=== PATIENT | female | born 1980 | race Caucasian/White ===

== ENCOUNTER 2024-02-24 10:47 | Emergency (ER) | payer SELFPAY ==
[2024-02-24 10:48] VITALS: BP 148/82
[2024-02-24 11:10] LABS: % Basophils 1.4 % (0-2); % Eosinophils 11.1 % (0-6); % Immature Granulocytes 0.2 % (0-0.5); % Lymphocytes 52.2 % (20.5-51.1); % Monocytes 8.8 % (1.7-9.3); % Neutrophils 26.3 % (42.2-75.2); Absolute Basophils 0.1 10^3/uL (0-0.2); Absolute Eosinophils 0.7 10^3/uL (0-0.7); Absolute Lymphocytes 3.3 10^3/uL (1.2-3.4); Absolute Monocytes 0.6 10^3/uL (0.1-0.6); Absolute Neutrophils 1.6 10^3/uL (1.4-6.5); Hematocrit 39.5 % (37.0-47.0); Hemoglobin 14.4 g/dL (12.0-16.0); Mean Corp Hgb Conc. 36.5 g/dL (33.0-37.0); Mean Corpuscular Hgb 29.6 pg (27.0-31.0); Mean Corpuscular Volume 81.3 fL (81.0-99.0); Mean Platelet Volume 8.6 fL (7.4-10.4); Nucleated Red Blood Cells % 0 %; Platelet Count 275 10^3/uL (130-400); Red Blood Cell Count 4.86 10^6/uL (4.20-5.40); Red Cell Dist. Width 13.1 % (11.5-14.5); White Blood Cell Count 6.2 10^3/uL (4.8-10.8)
[2024-02-24 11:22] LABS: ALT (SGPT) 20 U/L (0-35); AST (SGOT) 28 U/L (14-36); Albumin 4.5 g/dl (3.5-5.0); Alkaline Phosphatase 54 U/L (38-126); Blood Urea Nitrogen 11 mg/dl (7-17); Calcium 9.6 mg/dl (8.4-10.2); Carbon Dioxide 27 mmol/L (22-30); Chloride 107 mmol/L (98-107); Glucose 83 mg/dl (70-99); Sodium 138 mmol/L (135-145); Total Bilirubin 0.7 mg/dl (0.2-1.3); Total Protein 7.2 g/dl (6.3-8.2); eGFR > 60.00
[2024-02-24 11:26] LABS: COVID-19 Antigen Negative (Negative)
[2024-02-24 11:33] LABS: Troponin I < 0.012 ng/ml
[2024-02-24] MEDS: DECADRON 10 MG PO (11:36)
[2024-02-24] MEDS: DUONEB 3 ML INH ×2 (11:37→13:02)
--- NOTE | 2024-02-24 12:46 | ED.GENMED ---
History of Present Illness
General
Chief Complaint: Breathing Problem
Source: patient
Exam Limitations: none
Time Seen by Provider: 02/24/24 11:20
Nursing documentation reviewed up to this point in time: agreed with
Travel History
Have you had any contact with someone who has COVID-19?: No
Do you have any symptoms of coronavirus? Fever > 100 degrees, chills, cough, shortness of breath, sore throat, loss of taste or smell, muscle aches, or headache?: No
History of Present Illness
History of Present Illness:
43-year-old female with past medical history of asthma presenting to the emergency department today with concerns of 1 week of worsening wheezing shortness of breath despite using inhaler nebulizer at home has had some degree of symptoms over the
past 2 months. Denies chest pain fevers nausea vomiting.
Past History
Past History
ED Past Medical History: Asthma and Other (Bronchitis)
ED Past Surgical History: Gynecological (Tubal ligation)
Social History
Tobacco: Vaping
Alcohol: None
Drug: None
Personal:
Living: with family
Review of Systems
Review of Systems
Allergies reviewed?: Yes
All Other Systems: ROS reviewed and negative except as documented in HPI and ROS
Phy Exam
Physical Exam
Physical Exam:
GENERAL: Alert , in no apparent distress
EYE: pupils equal and reactive
NECK: Supple, no significant adenopathy.
ENT: o/p clr, mmm.
CARDIAC: Regular rate and rhythm .
LUNGS: Diffuse inspiratory and expiratory wheezing.
ABDOMEN: Soft, without focal tenderness, no r/g, no cvat
NEUROLOGICAL: Alert and oriented, no focal neuro deficits
SKIN: Warm and dry, skin intact.
MUSCULOSKELETAL: No edema, well perfused.
PSYCH: Normal and appropriate interaction.
Scores
Heart Failure Risk
Heart Failure Risk Score: Not Applicable
Course
Orders/Labs/Results
Orders:
Orders
02/24/24 10:50
Electrocardiogram (*1) Urgent
Reason for Study: Shortness of Breath
02/24/24 10:51
EKG- Treatment ONCE
02/24/24 10:59
COVID-19 Antigen Urgent
Source: Nasal Swab
Complete Blood Count/With Diff Urgent
Comprehensive Metabolic Panel Urgent
Troponin I Urgent
Influenza A+B Rapid Molecular Urgent
PATY Source: Nasal Swab
Specimen Description:
02/24/24 11:29
Dexamethasone Pf [Decadron] 10 mg PO NOW STA
Ipratropium/Albuterol Sulfate [Duoneb] 3 ml INH R NOW STA
02/24/24 11:30
Chest [CR Chest - 2 Views ] Urgent
Comment:
Reason For Exam: sob cp
02/24/24 12:56
Ipratropium/Albuterol Sulfate [Duoneb] 3 ml INH R NOW ONE
Abnormal Lab Results
02/24/24
10:59
Neutrophils % 26.3 L %
(42.2-75.2)
Lymphocytes % 52.2 H %
(20.5-51.1)
Eosinophils % 11.1 H %
(0-6)
02/24/24 10:59
02/24/24 10:59
Vital Signs
Initial and Last Documented VS:
Initial Vital Signs
Temp Pulse Resp BP Pulse Ox
98.7 F 84 20 148/82 95
02/24/24 10:48 02/24/24 10:48 02/24/24 10:48 02/24/24 10:48 02/24/24 10:48
Last Documented Vital Signs
Temp Pulse Resp BP Pulse Ox
98.7 F 84 20 148/82 95
02/24/24 10:48 02/24/24 10:48 02/24/24 10:48 02/24/24 10:48 02/24/24 10:48
MDM/Problems Addressed
MDM/Problems Addressed:
43-year-old female presenting to the emergency department today with concerns of wheezing breath over the past week has had intermittent symptoms over the past 2 months. Here she has diffuse inspiratory expiratory wheezing consistent with asthma
exacerbation. She was given dose of dexamethasone and also given a DuoNeb. Labs were unremarkable EKG normal chest x-ray without signs of pneumonia. Symptoms improved after treatment labs unremarkable troponin negative EKG normal chest x-ray
normal stable for outpatient management return precautions given.
*Critical Care Note
Total Time (30-74mins, 75-104mins- exclusive of procedures): Not Applicable
ED Attending Note
-
Portions of this chart may have been created with voice recognition software.� Occasional wrong word or��sound alike� substitutions may have occurred due to the inherent limitations of voice recognition software.
Discharge Plan
Departure
Patient Disposition: Home (Routine Discharge)
Date of Disposition: 02/24/24
Time of Disposition: 13:57
Patient with high blood pressure during this ER visit?: No
Condition: Good
Covid-19: Not Applicable
Discharge Problem:
Asthma exacerbation
Instructions: Asthma, Adult (DC)
Prescriptions:
New
prednisone 10 mg Tablet
See Rx Instructions .ROUTE .COMPLEX Qty: 45 0RF
Rx Instructions:
Take By Mouth:
50 mg daily x3 days, 40 mg daily x3 days,
30 mg daily x3 days, 20 mg daily x3 days,
10 mg daily x3 days
azithromycin 500 mg tablet
500 mg PO DAILY 3 Days Qty: 3 0RF
budesonide-formoterol [Symbicort] 160-4.5 mcg/actuation HFA aerosol inhaler
2 puff inhalation BID Qty: 10.2 0RF
No Action
azithromycin 250 MG tablet
250 mg PO DAILY Qty: 6 0RF
prednisone 50 MG tablet
50 mg PO DAILY Qty: 4 0RF
albuterol sulfate [Proventil HFA] 90 MCG/PUFF HFA aerosol inhaler
1 puff inhalation Q4HPRN PRN (Reason: shortness of breath) Qty: 1 0RF
Referrals:
Vijay Matamoros MD [Active] - Follow up in 1 week
NONE,* [Family Provider] -
Activity Restrictions/Additional Instructions:
You came to the emergency department today with concerns of ongoing asthma like symptoms. Please take the prednisone with a tapered course that you are prescribed as well as azithromycin at the Symbicort twice daily. Please follow closely with
pulmonary for ongoing symptoms. Return to the emergency department for any worsening, new or concerning symptoms.
Interventions
Interventions:
*ED COVID-19 Vaccine History Last Done: 02/24/24 10:48
ED- Cardiac Assessment Last Done: 02/24/24 11:25
ED- Pulmonary Assessment Last Done: 02/24/24 11:25
Discharge Date and Time
Print Language: DANISH
== END 2024-02-24 14:16 | disposition home or self-care (01) ==
LOC: EMR 10:47
PROVIDERS: EMERGENCY PHYSICIAN Emergency Medicine
DX: J45.901 Unspecified asthma with (acute) exacerbation (principal); Z11.52 Encounter for screening for COVID-19; F17.290 Nicotine dependence, other tobacco product, uncomplicated; Z88.0 Allergy status to penicillin
CPT/HCPCS: 99284; 94640 ×2; 71046; 80053; 84484; 85025; 87502; 87811; 93005